=== PATIENT | female | born 1985 | race Caucasian/White ===

== ENCOUNTER 2016-12-17 20:24 | Inpatient (IN) ==
[2016-12-17] MEDS ORDERED: Ipratropium/Albuterol Neb 3 ML IH ONE ×2 (20:30→20:31)
[2016-12-17] MEDS ORDERED: methylPREDNISolone 125 MG/2 ML VIAL IVP ONE (20:33)
--- NOTE | 2016-12-17 20:40 | Emergency Department Note ---
Disposition Clinical Impression: Asthma with exacerbation Qualifiers: Asthma severity: unspecified severity Qualified Code(s): J45.901 - Unspecified asthma with (acute) exacerbation Disposition: Admitted As Inpatient Condition: Good Instructions: Asthma (ED) Referrals: NONE,PCP [Non-Partnered Physician] - Forms: ED Satisfaction Letter SOB HPI - General Chief Complaint: ED Shortness of Breath/Dyspnea Stated Complaint: Asthma Time Seen by Provider: 12/17/16 20:28 Source: patient Mode of arrival: private vehicle Limitations: no limitations Nursing Notes Reviewed: Yes Vital Signs Reviewed: Yes - History of Present Illness 31-year-old female history of asthma not on daily maintenance medications who presents to the ER due to cough and shortness of breath. Patient states that she has been sick earlier this week from her kids. Reports she had a runny nose and sore throat. States yesterday she started getting a cough and shortness of breath which prompted her to go to her primary care provider. She states there she was given a shot of steroids as well as pills. She states the also place her on Omnicef. She states usually gets better after a dose of steroids but she worsened today prompting her to come here. Upon arrival she was 93% on room air. She denies a prior history of intubation or hospitalization for her asthma. Has chest pain with coughing. No history of UT , DVT or PE. No fevers at home. No other complaints. Pt Subjective Complaint: shortness of breath, cough Onset (ago): day(s) Context: recent illness Severity: severe Consistency/Duration: constant Improves with: nothing Worsens with: nothing Known history of: asthma Associated symptoms: Reports: chest pain (With coughing), cough, wheezing. Denies: fever Treatment prior to arrival: bronchodilator Cough present: Yes Cough Description: Involuntary Cough Frequency: Intermittent Sputum production: No Sputum Amount: None - Related Data Home oxygen amount: none Previous Rx's Medication Instructions Recorded Albuterol Sulfate [Albuterol 2 puff IH Q6HR #1 hfa.aer.ad 03/11/16 Inhaler] Azithromycin [Zithromax] 250 mg PO DAILY #6 tablet 03/11/16 Promethazine/Codeine 5 ml PO Q6HR #240 ml 03/11/16 [Phenergan/Codeine] predniSONE [PredniSONE] 10 mg PO DAILY #21 tablet 03/11/16 Allergies Allergy/AdvReac Type Severity Reaction Status Date / Time No Known Allergies Allergy Verified 12/17/16 20:29 All systems ED: reviewed and negative except as stated. Constitutional: Denies: fever Cardiovascular: Reports: chest pain (With coughing) Respiratory: Reports: cough, dyspnea, wheezes Gastrointestinal: Denies: abdominal pain, nausea, vomiting, diarrhea Past Medical History - Past Medical History Attestation: Yes The following information was validated with the patient. Source: patient Medical history: Reports: asthma Surgical history: Reports: non-contributory - Social History Smoking Status: Never smoker Smokeless Tobacco Status: No Alcohol use: Reports: none Drug use: Reports: none Physical Exam - General Limitations: no limitations General appearance: alert, anxious - Head Head exam: atraumatic, normocephalic, normal inspection - Eye Eye exam: Present: normal appearance, EOMI - ENT ENT exam: normal exam - Neck Neck exam: Present: normal inspection, full ROM - Chest Chest inspection: Present: normal inspection, symmetric chest wall rise - Respiratory Respiratory exam: Present: wheezes (Patient has diffuse wheezing on exam with accessory muscle use.), accessory muscle use, prolonged expiratory phase - Cardiovascular Cardiovascular exam: Present: regular rate, normal rhythm, normal heart sounds - Abdominal Exam Abdominal exam: Present: soft, Non-Tender. Absent: tenderness - Extremities Exam Extremities exam: Present: normal inspection, full ROM - Expanded Upper Extremity Exam Shoulder exam: Present: normal inspection, full ROM Arm exam: Present: normal inspection, full ROM Elbow exam: Present: normal inspection, full ROM Forearm/Wrist exam: Present: normal inspection, full ROM Hand exam: Present: normal inspection, full ROM Vascular exam: Normal: radial pulse - Expanded Lower Extremity Exam Hip/Pelvis exam: Present: normal inspection, full ROM Upper leg exam: Present: normal inspection, full ROM Knee exam: Present: normal inspection, full ROM Lower leg exam: Present: normal inspection, full ROM Ankle exam: Present: normal inspection, full ROM Foot/toe exam: Present: normal inspection, full ROM Neurovascular/Tendon exam: Absent: motor deficit, sensory deficit - Neurological Exam Neurological exam: Present: alert, other (GCS 15. Nonfocal neurologic exam. Moves all extremities equally.) - Psychiatric Psychiatric exam: Present: normal affect, normal mood - Skin Skin exam: Present: warm, dry, intact, normal color Course Course Narrative: Patient seen and examined. Patient will have DuoNeb treatments as well as IV steroids. We will also obtain a chest x-ray and basic labs. - Reevaluation(s) Reevaluation #1: Patient does feel better after her triple DuoNeb treatment. Discussed results of imaging showing no pneumonia. We will continue to observe her here. Reevaluation #2: Patient reports worsening shortness of breath after her breathing treatments. We have ordered her another triple albuterol treatment as well as IV magnesium. Patient agreeable with coming into the hospital for observation. Vital Signs Temperature 98.8 F 12/17/16 20:26 Pulse Rate 98 12/17/16 20:26 Respiratory Rate 22 12/17/16 20:26 Blood Pressure 170/109 12/17/16 20:26 O2 Sat by Pulse Oximetry 93 12/17/16 20:26 Temperature 98.8 F 12/17/16 20:26 Pulse Rate 134 12/17/16 21:12 Respiratory Rate 20 12/17/16 21:12 Blood Pressure 170/109 12/17/16 20:26 O2 Sat by Pulse Oximetry 95 12/17/16 21:12 Oxygen Delivery Oxygen Delivery Aerosol Mask Shortness of Breath/Dyspnea - [facility] Narrative Medical decision making narrative: 31-year-old female presents to the ER due to shortness of breath. Underlying history of asthma. Not on any maintenance medications. Reports she was seen by her PCP yesterday who was given steroids and Ceftin ear. Reports worsening shortness of breath and cough today bringing her back in. Her EKG is sinus rhythm. Chest x-ray demonstrates no acute process. White count within normal limits. Patient given 3 DuoNeb treatments here as well as IV Solu-Medrol with initial improvement but worsening after. Patient also given 3 albuterol treatments and IV magnesium. Patient admitted to the hospitalist service for asthma exacerbation. - Lab Data Lab results reviewed: Yes I reviewed the patient's lab results. Result diagrams: 12/17/16 20:40 12/17/16 20:40 Lab Results 12/17/16 12/17/16 Range/Units 20:40 20:40 WBC 9.3 (4.3-11.1) K/mcL RBC 5.08 H (3.82-4.97) M/mcL Hgb 14.7 (11.5-15.4) g/dL Hct 41.7 (35.3-44.9) % MCV 82.1 L (83.0-100.0) fL MCH 28.9 (28.0-33.3) pg MCHC 35.3 (31.6-35.5) g/dL RDW 12.3 (11.5-14.5) % Plt Count 211 (140-400) K/mcL MPV 10.3 (9.4-12.4) fL Immature Gran % 0.5 (0-4) % Seg Neutrophils % 76.6 % Lymphocytes % 13.0 % Monocytes % 9.6 % Eosinophils % 0.0 % Basophils % 0.3 % Neutrophils # 7.1 (1.6-8.9) K/mcL Lymphocytes # 1.2 (0.6-4.6) K/mcL Monocytes # 0.9 (0.0-1.3) K/mcL Eosinophils # 0.0 (0.0-0.6) K/mcL Basophils # 0.0 (0.0-0.2) K/mcL Sodium 139 (136-145) mEq/L Potassium 3.6 (3.5-4.5) mEq/L Chloride 109 (98-109) mEq/L Carbon Dioxide 19 (19-29) mEq/L BUN 8 (7-20) mg/dL Creatinine 0.77 (0.57-1.11) mg/dL Est GFR ( Amer) > 60 (> 60) Est GFR (Non-Af Amer) > 60 (> 60) BUN/Creatinine Ratio 10 (6-26) Glucose 200 H (70-99) mg/dL Calculated Osmolality 292 (280-300) Calcium 9.5 (8.6-10.8) mg/dL - Radiology Data Radiology results reviewed: Yes I reviewed the patient's radiology results. Chest X-Ray 12/17/16 20:33 IMPRESSION: Clear lungs. Linear radiopaque density projecting over the right lung apex is presumably outside the patient's body but clinical correlation is required to rule out foreign body. D/ / Ryan Montana MD / Ryan Montana MD Interpreting Provider: Ryan Montana MD - EKG Data EKG attestation: Yes I reviewed and interpreted this EKG. EKG results narrative: EKG demonstrates sinus rhythm with rate of 85 bpm. Normal axis. Normal intervals. No ST elevations or depressions. No acute ischemic findings. Attestation Statement - Attestation Attestation: I, Gage Malin DO, examined this patient [id number] and my medical decision-making was reviewed with Dr. Beto Manjarrez, Resident Physician. I agree with the documented findings, disposition and treatment plan as described except to the extent set forth below. Please see my progress notes for details. 31-year-old female presented to emergency room with history of asthma. Possible very subtle viral URI like symptoms. She was started on antibiotics and steroids yesterday by her primary care provider. Today she woke up and had increased work of breathing. He was not responsive to albuterol inhalers at home. She has never required intubation or hospitalization for her asthma. Patient did have significant work of breathing on presentation. No stridor no trismus lungs are diffusely wheezy at this time with poor aeration. Patient is using accessory muscles to breathe. heart is regular. Patient is to receive breathing treatments and steroids. Reevaluation after chest x-rays completed in discussion with disposition be determined. See detailed documentation of the physical exam, disposition, medical decision making process in the resident physician's note.
[2016-12-17 20:48] LABS: Basophils % 0.3 %; Hematocrit 41.7 % (35.3-44.9); Hemoglobin 14.7 g/dL (11.5-15.4); Immature Granulocytes % 0.5 % (0-4); Lymphocytes # 1.2 K/mcL (0.6-4.6); Mean Corpuscular HGB Conc 35.3 g/dL (31.6-35.5); Mean Corpuscular Hemoglobin 28.9 pg (28.0-33.3); Mean Corpuscular Volume 82.1 fL (83.0-100.0); Mean Platelet Volume 10.3 fL (9.4-12.4); Monocytes # 0.9 K/mcL (0.0-1.3); Monocytes % 9.6 %; Neutrophils # 7.1 K/mcL (1.6-8.9); Platelet Count 211 K/mcL (140-400); Red Blood Count 5.08 M/mcL (3.82-4.97); Red Cell Distribution Width 12.3 % (11.5-14.5); Segmented Neutrophils % 76.6 %
[2016-12-17 21:01] LABS: BUN/Creatinine Ratio 10 (6-26); Blood Urea Nitrogen 8 mg/dL (7-20); Calcium 9.5 mg/dL (8.6-10.8); Carbon Dioxide 19 mEq/L (19-29); Chloride 109 mEq/L (98-109); Glucose 200 mg/dL (70-99); Osmolality,Calculated 292 (280-300); Potassium 3.6 mEq/L (3.5-4.5); Sodium 139 mEq/L (136-145); eGFR For African Americans > 60 (> 60); eGFR For Non-African Americans > 60 (> 60)
[2016-12-17] MEDS ORDERED: 0.9 % Sodium Chloride 1,000 ML IVC ONE (21:24)
[2016-12-17] MEDS ORDERED: Albuterol 2.5 MG/3 ML NEBULIZER IH ONE (22:13)
[2016-12-17] MEDS ORDERED: Ipratropium/Albuterol Neb 3 ML IH PRN ×2 (22:46→22:56)
[2016-12-17] MEDS ORDERED: MethylPREDNISolone 40 MG/ML VIAL IVP ONE (22:47)
--- NOTE | 2016-12-17 22:48 | Event Note ---
Date of Encounter: 12/17/16 Time of Encounter: 22:46 Patients have examined with nurse practitioner. Acute asthma exacerbation. Seeing her PCP yesterday received 2 doses of prednisone 40 mg in addition to Q6 hours nebulizers treatment in addition to Q1 to 2 hours albuterol inhaler without improvement. Still short of breath with accessory muscle use despite 3 neb treatments in emergency room. Patient telemetry floor she still speaking in 4-5 word sentences. Will start Q2 hours nebulizer treatment with Q1 our PRN. IV steroids antibiotics as she had a fever yesterday. Arterial blood gas will be performed. Prognosis guarded. She is full code
--- NOTE | 2016-12-17 23:04 | Internal Med History&Physical ---
Date of Encounter: 12/17/16 Time of Encounter: 23:01 Assessment and Plan (1) Asthma with exacerbation Current visit: Yes Status: Acute Patient being admitted for acute exacerbation of asthma moderate respiratory distress. She is currently on O2 and continuing to have dyspnea; has been given 2 prolonged nebulizer treatments and mg IVPB in the ED. Continuous telemetry. Continuous SPO2 Oxygen therapy 2 L nasal cannula titrate to keep SPO2 greater than 92% Solu-Medrol 60 mg every 6 hours Duo nebs every 2 hours scheduled Duo nebs every 20 minutes when necessary ABG IV Levaquin 750 mg first dose now, then 750 mg IV piggyback daily thereafter, escalate antibiotic therapy is appropriate CBC and BMP in the morning Qualifiers: Asthma severity: moderate persistent Qualified Code(s): J45.41 - Moderate persistent asthma with (acute) exacerbation Internal Medicine - H&P: HPI Chief complaint: DYSPNEA, ASTHMA EXAC Admitted From: Home Plans for Post Hospital Care: Home History of present illness: Ms. Suarez is a 31 year old female resumes to [facility] with difficulty breathing and asthma exacerbation. He states that she began experiencing fevers and URI symptoms including cough, postnasal drainage, bilateral ear pain, sweats , chills and fevers. She made aN appointment with her primary care provider on Monday, was then given a steroid injection and sent home on Zithromax. She reports that the wheezing, cough, and shortness of breath has become increasingLY worse and is unresponsive to her albuterol inhaler. Upon arrival to [facility] the patient is an moderate respiratory distress, , chest x-ray reveals no acute pulmonary process, CBC and metabolic panel unremarkable. On the ED she received 2 prolonged nebulizer treatments, Solu-Medrol IV, And magnesium sulfate via IV. She is being admitted to [facility] for further monitoring and treatment. Past Med Surg Social Fam HX - Past Medical History Medical history: asthma - Past Surgical History Surgical History: non-contributory - Social History Smoking Status: Never smoker Smokeless Tobacco Status: No Alcohol use: none Drug use: none - Family History Daughter Race: Family Member Ethnicity: Non- Hx Family Cardiac Disorders: Yes (Hypertension) Father Race: Family Member Ethnicity: Non- Hx Family Cardiac Disorders: Yes (Hypertension) Internal Medicine - H&P: Meds Albuterol Sulfate [Albuterol Inhaler] 2 puff IH Q6HR #1 hfa.aer.ad 03/11/16 [Rx] Azithromycin [Zithromax] 250 mg PO DAILY #6 tablet 03/11/16 [Rx] Promethazine/Codeine [Phenergan/Codeine] 5 ml PO Q6HR #240 ml 03/11/16 [Rx] predniSONE [PredniSONE] 10 mg PO DAILY #21 tablet 03/11/16 [Rx] 3 Allergy/AdvReac Type Severity Reaction Status Date / Time No Known Allergies Allergy Verified 12/17/16 20:29 All Systems PM: A 10-system review of systems was performed and is negative for pertinent findings except as documented above in the HPI. - Constitutional Constitutional: chills, excessive sweating, fatigue, no fever(s), no night sweats - EENT Eyes: no change in vision, no discharge, no pain, no photophobia Ears: ear pain (Right ear), no ear discharge, no tinnitus Nose, mouth and throat: post-nasal drip, no dysphagia, no nasal discharge, no neck pain, no sore throat - Cardiovascular Cardiovascular ROS IM: no chest pain, no diaphoresis, no dyspnea, no lightheadedness, no palpitations, no syncope - Respiratory Respiratory: cough (Productive of thin clear sputum), dyspnea, wheezing, pain on inspiration, chest congestion, no excessive phlegm production - Gastrointestinal Gastrointestinal: no abdominal pain, no diarrhea, no hematemesis, no hematochezia, no melena, no nausea, no vomiting - Genitourinary Genitourinary: no change in urinary stream, no dysuria, no flank pain, no hematuria - Musculoskeletal Musculoskeletal ROS IM: no numbness, no tingling - Integumentary Integumentary IM: no rash, no unusual bruising - Neurological Neurological ROS: no confusion, no convulsions, no focal weakness, no numbness, no tingling, no tremor(s) - Hematologic/Lymphatic Hematologic/Lymphatic: no easy bruising - Constitutional Vitals: Temp Pulse Resp BP Pulse Ox 98.8 F 134 23 170/109 98 12/17/16 20:26 12/17/16 21:12 12/17/16 22:25 12/17/16 20:26 12/17/16 22:25 General appearance: Present: cooperative, A&O X 3, severe distress, answers questions appropriately - Head Head exam: Present: atraumatic, normocephalic - Eye Eye exam: Present: EOMI, PERRL, conjuntiva pink, sclera anicteric Pupils: Present: PERRL - Neck Neck exam general surgery: Present: supple, trachea midline. Absent: lymphadenopathy - Respiratory Respiratory exam: Present: accessory muscle use, CTAB, respiratory distress, wheezes, tachypnea. Absent: rales - Cardiovascular Cardiovascular exam: Present: RRR, +S1, +S2, tachycardia. Absent: diastolic murmur, gallop, rubs, systolic murmur - GI/Abdominal GI/Abdominal exam: Present: normal bowel sounds, soft, no peritoneal signs. Absent: distended, tenderness - Extremities Exam Extremities exam: Present: warm, radial pulses palpable and symmetrical. Absent : calf tenderness, cyanotic, pedal edema - Neurological Exam Neurological exam: Present: CN II-XII intact, oriented X3, no focal deficits. Absent: pronater drift, facial droop, speech deficit - Skin Skin exam: Present: dry, intact Internal Med - H&P Results - Labs CBC & Chem 7: 12/17/16 20:40 12/17/16 20:40 Labs: Short CBC 12/17/16 Range/Units 20:40 WBC 9.3 (4.3-11.1) K/mcL Hgb 14.7 (11.5-15.4) g/dL Hct 41.7 (35.3-44.9) % Plt Count 211 (140-400) K/mcL Neutrophils # 7.1 (1.6-8.9) K/mcL BMP 12/17/16 20:40 Sodium 139 Potassium 3.6 Chloride 109 Carbon Dioxide 19 BUN 8 Creatinine 0.77 Glucose 200 H Calcium 9.5 - Impressions ITS Impressions Chest X-Ray 12/17/16 20:33 IMPRESSION: Clear lungs. Linear radiopaque density projecting over the right lung apex is presumably outside the patient's body but clinical correlation is required to rule out foreign body. D/ / Ryan Montana MD / Ryan Montana MD Interpreting Provider: Ryan Montana MD - Diagnostic Studies Chest x-ray Additional comments: No acute pulmonary process
[2016-12-17] MEDS ORDERED: Naloxone 0.4 MG/ML INJ IVP PRN (23:11)
[2016-12-17] MEDS: Ipratropium/Albuterol Neb 3 ML IH SCH (23:28)
[2016-12-17 23:38] LABS: ABG Base Excess -6.1 mEq/L (-2.0 to 3.0); ABG HCO3 18 mEq/L (21-27); ABG Oxygen Saturation 75 % (95-98); ABG PCO2 30 mmHg (35-45); ABG PH 7.38 pH Units (7.32-7.45); ABG TCO2 18.6 mEq/L (20-26); Blood Gas FiO2 32 %
[2016-12-17 23:39] LABS: ABG PO2 41 mmHg (85-104)
[2016-12-18] MEDS: Promethazine/Codeine Oral Sryup 5 ML UDC PO SCH ×4 (00:13→17:11)
[2016-12-18] MEDS: Levofloxacin 750 MG/150 ML 750 MG/150 ML BAG IVPB SCH ×2 (00:13→22:36)
[2016-12-18] MEDS: Ipratropium/Albuterol Neb 3 ML IH SCH ×9 (01:34→23:17)
[2016-12-18] MEDS: methylPREDNISolone 125 MG/2 ML VIAL IVP SCH ×4 (04:54→17:11)
[2016-12-18] MEDS: *HR* Enoxaparin 40 MG/0.4 ML SYRINGE SQ SCH (06:11)
[2016-12-18 07:10] LABS: Basophils % 0.2 %; Hematocrit 39.8 % (35.3-44.9); Hemoglobin 13.5 g/dL (11.5-15.4); Immature Granulocytes % 0.8 % (0-4); Lymphocytes # 0.8 K/mcL (0.6-4.6); Lymphocytes % 8.3 %; Mean Corpuscular HGB Conc 33.9 g/dL (31.6-35.5); Mean Corpuscular Hemoglobin 28.7 pg (28.0-33.3); Mean Corpuscular Volume 84.7 fL (83.0-100.0); Mean Platelet Volume 10.4 fL (9.4-12.4); Monocytes # 0.4 K/mcL (0.0-1.3); Monocytes % 3.8 %; Neutrophils # 8.1 K/mcL (1.6-8.9); Platelet Count 198 K/mcL (140-400); Red Cell Distribution Width 12.8 % (11.5-14.5); Segmented Neutrophils % 86.9 %
[2016-12-18 07:44] LABS: Alanine Aminotransferase 82 Units/L (0-55); Albumin 3.8 g/dL (3.5-5.0); Albumin/Globulin Ratio 1.1 (1.1-2.2); Alkaline Phosphatase 76 Units/L (38-126); Aspartate Amino Transferase 44 Units/L (5-34); BUN/Creatinine Ratio 9 (6-26); Bilirubin,Total 0.2 mg/dL (0.2-1.2); Blood Urea Nitrogen 7 mg/dL (7-20); Calcium 9.2 mg/dL (8.6-10.8); Carbon Dioxide 18 mEq/L (19-29); Chloride 108 mEq/L (98-109); Globulin 3.6 g/dL (2.4-3.5); Glucose 162 mg/dL (70-99); Osmolality,Calculated 290 (280-300); Potassium 3.4 mEq/L (3.5-4.5); Sodium 139 mEq/L (136-145); Total Protein 7.4 g/dL (6.0-8.3); eGFR For African Americans > 60 (> 60); eGFR For Non-African Americans > 60 (> 60)
[2016-12-18] MEDS ORDERED: 0.9 % Sodium Chloride 1,000 ML IVC ONE (08:16)
--- NOTE | 2016-12-18 08:55 | Internal Med Progress Note ---
Date of Encounter: 12/18/16 Time of Encounter: 08:55 - Assessment and plan (1) Asthma with exacerbation Current Visit: Yes Status: Acute Assessment and plan: IVF for tachycardia Continue current management Hypoxic on admission, improving without oxygen, continue to monitor Qualifiers: Asthma severity: moderate persistent Qualified Code(s): J45.41 - Moderate persistent asthma with (acute) exacerbation (2) Hypoxia Current Visit: Yes Status: Resolved Assessment and plan: Secondary to asthma exacerbation Resolved Continue to monitor (3) DVT prophylaxis Current Visit: Yes Status: Acute (4) Obesity (BMI 35.0-39.9 without comorbidity) Current Visit: Yes Status: Chronic - Subjective Interval history: She is admitted for acute asthma exacerbation She reports some improvement She has never been hospitalized or intubated for asthma exacerbation This episode was precipitated by suspected viral rhinitis which her children had today she complains of sore throat - Constitutional Vitals: Temp Pulse Resp BP Pulse Ox 98.5 F 123 18 161/94 98 12/18/16 07:42 12/18/16 07:42 12/18/16 07:42 12/18/16 07:42 12/18/16 07:42 General appearance: Present: cooperative, A&O X 3, no acute distress, obese, severe distress, answers questions appropriately - Head Head exam: Present: atraumatic, normocephalic - Eye Eye exam: Present: PERRL, conjuntiva pink, sclera anicteric Pupils: Present: PERRL - ENT Additional comments: Pharyngeal hyperemia, no tonsillar enlargement, no exudates - Neck Neck exam general surgery: Present: supple, trachea midline. Absent: lymphadenopathy - Respiratory Respiratory exam: Present: CTAB. Absent: accessory muscle use, rales, rhonchi, wheezes - Cardiovascular Cardiovascular exam: Present: RRR, +S1, +S2. Absent: diastolic murmur, gallop, rubs, systolic murmur - GI/Abdominal GI/Abdominal exam: Present: normal bowel sounds, soft, no peritoneal signs. Absent: distended, tenderness - Extremities Exam Extremities exam: Present: warm, radial pulses palpable and symmetrical. Absent : calf tenderness, cyanotic, pedal edema - Neurological Exam Neurological exam: Present: alert, CN II-XII intact, oriented X3, no focal deficits. Absent: pronater drift, facial droop, speech deficit - Skin Skin exam: Present: dry, intact Internal Medicine: Result - Labs CBC & Chem 7: 12/18/16 06:21 12/18/16 06:21 Labs: Short CBC 12/18/16 Range/Units 06:21 WBC 9.3 (4.3-11.1) K/mcL Hgb 13.5 (11.5-15.4) g/dL Hct 39.8 (35.3-44.9) % Plt Count 198 (140-400) K/mcL Neutrophils # 8.1 (1.6-8.9) K/mcL BMP 12/18/16 06:21 Sodium 139 Potassium 3.4 L Chloride 108 Carbon Dioxide 18 L BUN 7 Creatinine 0.74 Glucose 162 H Calcium 9.2 Liver Function 12/18/16 Range/Units 06:21 Total Bilirubin 0.2 (0.2-1.2) mg/dL AST 44 H (5-34) Units/L ALT 82 H (0-55) Units/L Alkaline Phosphatase 76 (38-126) Units/L Albumin 3.8 (3.5-5.0) g/dL - ABG Interpretation ABG results: ABG ABG pH 7.38 pH Units (7.32-7.45) 12/17/16 23:26 ABG pCO2 30 mmHg (35-45) L 12/17/16 23:26 ABG pO2 41 mmHg (85-104) L* 12/17/16 23:26 ABG O2 Saturation 75 % (95-98) L 12/17/16 23:26 Consult Discharge Plan - Plan Referrals: Obdulia Mcneill, INTERNAL SALESPERSON [Primary Care Provider] -
[2016-12-18] MEDS ORDERED: Levofloxacin 750 MG/150 ML 750 MG/150 ML BAG IVPB SCH (09:00)
[2016-12-18] MEDS: 0.9 % Sodium Chloride 1,000 ML IVC SCH ×2 (15:06→22:38)
[2016-12-18] MEDS ORDERED: Albuterol 2.5 MG/3 ML NEBULIZER IH PRN (15:16)
[2016-12-19] MEDS: methylPREDNISolone 125 MG/2 ML VIAL IVP SCH ×3 (00:04→12:32)
[2016-12-19] MEDS: Promethazine/Codeine Oral Sryup 5 ML UDC PO SCH ×3 (00:04→12:38)
[2016-12-19] MEDS: Ipratropium/Albuterol Neb 3 ML IH SCH ×3 (04:40→11:15)
[2016-12-19 04:53] LABS: Chol/HDL Ratio 3.6 (0-4.9)
[2016-12-19] MEDS: *HR* Enoxaparin 40 MG/0.4 ML SYRINGE SQ SCH (05:55)
--- NOTE | 2016-12-19 09:11 | Discharge Summary ---
<AyanaNavarro - Last Filed: 12/19/16 10:27> Date of Encounter: 12/19/16 Time of Encounter: 09:45 - Discharge Diagnosis (1) Asthma with exacerbation Priority: Primary Status: Acute Qualifiers: Asthma severity: moderate persistent Qualified Code(s): J45.41 - Moderate persistent asthma with (acute) exacerbation (2) Obesity (BMI 35.0-39.9 without comorbidity) Priority: Primary Status: Chronic (3) DVT prophylaxis Priority: Primary Status: Acute (4) Hypertension Priority: Primary Status: Acute Qualifiers: Qualified Code(s): I10 - Essential (primary) hypertension - Discharge Medications Prescriptions: Budesonide/Formoterol 80/4.5 [Symbicort 80/4.5] 0 gm IH BID #1 hfa.aer.ad predniSONE [PredniSONE] 20 mg PO BID #6 Home Medications: Albuterol Sulfate [Albuterol Inhaler] 2 puff IH Q6HR #1 hfa.aer.ad 03/11/16 [Rx] Budesonide/Formoterol 80/4.5 [Symbicort 80/4.5] 0 gm IH BID #1 hfa.aer.ad 12/19 [Rx] predniSONE [PredniSONE] 20 mg PO BID #6 12/19/16 [Rx] Allergies/Adverse Reactions: 3 Allergy/AdvReac Type Severity Reaction Status Date / Time No Known Allergies Allergy Verified 12/17/16 20:29 Procedures/tests Complete & Pending: Procedures Performed prior 72 hours Category Date Time Status CTA chest [CT angio chest] [CT] Stat Cat Scan 12/18/16 14:47 Completed ECG 12 lead ECG [ECG] Routine Y 12/18/16 14:48 Completed Date of admission: 12/17/16 23:55 Primary care physician: Obdulia Mcneill CNP Discharging clinician: Amanule Allen Anticipated date of discharge: 12/19/16 - Patient Status Disposition: Home, Self-Care Condition: Good Functional capacity at discharge: independent ambulation Overall status at discharge: patient is progressing back to baseline - Discharge Instructions Instructions: Prednisone (By mouth), Asthma (DC) Follow Up With: Obdulia Mcneill CNP [Primary Care Provider] - 12/21/16 1:00 pm (please follow up as schedule.....) - Diet and Activity Activity: resume usual activities as tolerated Diet: low fat, low cholesterol, low salt diet Interval History: Ms. Suarez is a 31 year old female with a PMH of asthma taht presented to the ED for dyspnea and cough. Hospital course: Ms. Suarez is a 31 year old female with a PMH of asthma taht presented to the ED for dyspnea and cough. Patient says that she was sick for the past week with URI symptoms including fever, cough , dyspnea, and post nasal drip. She went to her PCP where she received nebulizer treatment along with albuterol and omnicef , but she did not improve. She was hypoxic on arrival. Her pO2 was low at 41. When she arrived to our ED, she received solu-medrol, IV magnesium, and nebulizer treatment. When seen today, she is breathing at room air and denies any shortness of breath, fever, chills, nausea, vomiting, headaches, head- lightness, syncope, or chest pain. Her blood pressure on arrival 170/109 and is currently at 151/87. She was given a one time dose of amlodipine today. Patient will be discharged with 3 day course of prednisone giving her a total of 5 days of corticosteroids. She will also be put on symbicort for maintenance of her asthma which she should continue to take daily. She will need to follow-up with her PCP for her asthma maintenance. Patient should also follow-up with her PCP for her obesity and new diagnosed hypertension. - Time Spent with Patient Total time spent providing and/or coordinating discharge services: Greater than 30 minutes - Constitutional Vitals: Temp Pulse Resp BP Pulse Ox 98.2 F 98 20 151/87 100 12/19/16 06:58 12/19/16 06:58 12/19/16 06:58 12/19/16 06:58 12/19/16 06:58 General appearance: Present: cooperative, A&O X 3, no acute distress, obese, answers questions appropriately - Respiratory Respiratory exam: Present: wheezes. Absent: prolonged expiratory phase, respiratory distress, tachypnea Additional comments: Wheezing noted in the L lung field. - Cardiovascular Cardiovascular exam: Present: +S1, +S2, tachycardia. Absent: diastolic murmur, systolic murmur Additional comments: Borderline tachycardia on exam. - GI/Abdominal GI/Abdominal exam: Present: normal bowel sounds, soft. Absent: guarding, rebound, tenderness <Amanuel Allne - Last Filed: 12/19/16 15:25> Date of Encounter: 12/19/16 - Discharge Diagnosis (1) Asthma with exacerbation Status: Acute Qualifiers: Asthma severity: moderate persistent Qualified Code(s): J45.41 - Moderate persistent asthma with (acute) exacerbation (2) Hypoxia Status: Resolved (3) DVT prophylaxis Status: Acute (4) Obesity (BMI 35.0-39.9 without comorbidity) Status: Chronic Procedures/tests Complete & Pending: Procedures Performed prior 72 hours Category Date Time Status CTA chest [CT angio chest] [CT] Stat Cat Scan 12/18/16 14:47 Completed ECG 12 lead ECG [ECG] Routine Y 12/18/16 14:48 Completed Date of admission: 12/17/16 23:55 Primary care physician: Obdulia Mcneill CNP Hospital course: Ms. Suarez is a 31 year old female - Time Spent with Patient Total time spent providing and/or coordinating discharge services: - Constitutional Vitals: Temp Pulse Resp BP Pulse Ox 97.8 F 115 20 154/80 93 12/19/16 12:01 12/19/16 12:01 12/19/16 12:01 12/19/16 12:01 12/19/16 12:01 - Attending Attestation I have independently seen and examined this patient on 12/19/16 and discussed plan of care with patient and resident 31 YO F with Intermittent Asthma, Morbid Obesity Seen and examined at bedside She was admitted and managed for acute exacerbation of bronchial asthma She also developed hypoxia with improved with treatment She had tachycardia with treatment EKG showed sinus tachycardia, CTA is negative for CT Her blood pressure has been persistently elevated since admission Physical Exam: VSS. HEENT: Moist oral mucosa, no pharyngeal exudates, no hyperemia. Chest with scattered wheezing. Heart : S1, S2 only, no m/g/r, Abdomen : Obese, not tender. No pedal edema Labs and Imaging reviewed A/P #1 Asthma exacerbation: Stable to be discharged home on prednsione, symbicort, albuterol inhaler. #2 Hypertension: Start Norvasc, discharge on same, follow with PCP Rest of details as in resident's documentation
[2016-12-19] MEDS ORDERED: amLODIPine 5 MG TABLET PO ONE (09:15)
[2016-12-19 12:02] VITALS: BP 154/80
--- NOTE | 2016-12-19 17:33 | Electrocardiograph Report ---
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
--- NOTE | 2016-12-19 17:45 | Electrocardiograph Report ---
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
[2016-12-19] MEDS ORDERED: levoFLOXacin 750 MG TABLET PO SCH (23:00)
== END 2016-12-19 13:14 | disposition home or self-care (01) | DRG 203 ==
LOC: 3BNU 20:24 → EMEROO 20:24 → 2ANU 22:49
PROVIDERS: ADMIT Hospitalist; ATTEND Nurse Practitioner Family